=== PATIENT | female | born 1980 | race Caucasian/White ===

== ENCOUNTER 2017-12-07 22:14 | Emergency (ER) | payer OTHER, SELFPAY ==
[2017-12-07 22:17] VITALS: BP 146/88; PULSE 91; RESP 20; TEMP 37.2; O2SAT 96; BMI 23.0
--- NOTE | 2017-12-07 22:39 | RAD_ITS ---
STUDY: X-RAY - RIGHT KNEE REASON FOR EXAM: Female, 37 years old. Pain TECHNIQUE: 4 view(s) of the knee. COMPARISON: None. FINDINGS: Normal visualized distal femur. Normal visualized proximal tibia and fibula. Normal proximal tibiofibular articulation. Normal medial femorotibial compartment. Normal lateral femorotibial compartment. Normal patellofemoral articulation. The soft tissue structures are unremarkable. RAD/Knee 4 or More Views IMPRESSION: Normal x-ray examination of the knee. Electronically Signed: Yandel Glaser DO at 23:00 EDT Tel [phone], Service support ,
--- NOTE | 2017-12-07 22:42 | ED.DCSUM_ITS ---
- ER Visit Summary Date of Service: 12/07/17 Chief Complaint: [] Pain in the right leg History of Present Illness: The patient is a 37 F complaining of pain in the right leg since earlier today. Gradual onset continuous. It is in her whole right leg but mainly comes from the knee. Hurts to put weight on it and bend it. No home treatment. No injury. She has had normal daily activity. No previous DVT. No swelling distally. Comes in for further evaluation. No previous. No DVT risk factors. Physical Examination: Vital signs reviewed General: Well-nourished well-developed Head: Normocephalic atraumatic Eyes: Pupils equal round and reactive to light extraocular movements intact ENT: TMs clear no hemotympanum no trauma Neck: Nontender full range of motion Cardiovascular: Regular rate rhythm no murmurs normal S1-S2 Respiratory: No distress clear to auscultation bilaterally chest nontender Abdomen: Soft nontender nondistended normal bowel sounds no masses Back: Nontender no CVA tenderness Extremities: Tenderness in the right popliteal fossa. The rest of the leg exam is normal. Normal color temperature. Normal pulses in the foot. No masses in the popliteal fossa. Decreased range of motion of the knee secondary to pain. No swelling. As well Skin: Normal color no trauma Neuro alert oriented cranial nerves II through XII intact normal strength sensation reflexes Test Results: [] Emergency Department Course and Treatment: [] Patient given a dose of Tylenol and given ice pack. X-ray of the knee obtained. Showed nothing acute. Patient given Juanito wrap. I think she likely has a popliteal cyst versus muscle strain in the popliteal region. Have a low suspicion for blood clot. She has no outward symptoms to suggest a blood clot. Negative Homans. No edema She will anti-inflammatories and follow-up as an outpatient. Given Ortho referral. Treatment Plan: [] Disposition: [] Impression: [] Right knee pain This note was generated with [employer] dictation software. It may contain incorrect words, spelling, and punctuation that were not noted in review of the chart prior to signing ED Disposition - Plan for ED Patient: Chief Complaint: Lower Extremity Injury Referrals: NOT,DEFINED [NON-STAFF] -
[2017-12-07] MEDS: Acetaminophen 500 MG Tablet 1000 MG PO (23:00)
--- NOTE | 2017-12-07 23:23 | ED.DEP ---
ED Disposition - Plan for ED Patient: Disposition: Home or Assisted Living Chief Complaint: Lower Extremity Injury Instructions: ED Knee Pain [facility] Referrals: NOT,DEFINED [NON-STAFF] - Esau Rondon DO [STAFF PHYSICIAN] -
[2017-12-07 23:32] VITALS: RESP 18
== END 2017-12-07 23:33 | disposition home or self-care (01) ==
PROVIDERS: Emergency Provider Emergency Medicine
DX: M25.561 Pain in right knee (principal)
CPT/HCPCS: 73564; 99283